=== PATIENT | female | born 1975 | race African-American/Black ===

== ENCOUNTER 2016-08-03 09:34 | Emergency (ER) | payer OTHER ==
[~2016-08-03] VITALS: Ht 165.1 cm; Wt 60.8 kg
[~2016-08-03 09:34] MED LIST: ACETAMINOPHEN325 M1; ADVAIR 100-501 EACH INH; ADVIL200 MG PO; ALA-CORT28.4 GM TP; ALBUTEROL SUL5 MG/ML IH; ALEVE220 M1 PO; ALEVE220 MG PO; ALLEGRA180 MG PO; AMOXICILLIN 50500 M1 PO; APAP500; APAP500 PO; BACTRIM DS TAB1 EACH PO; BENTYL20 MG PO; BUSPIRONE HCL10 MG PO; CEFTIN 250 MG250 MG PO; CEPHALEXIN 250250 M1 PO; CHILDREN'S ADVI50 MG PO; CIPRO500 MG PO; CIPROFLOXACIN500 M1 PO; CIPROFLOXACIN500 M3 OR; CITRATE OF MAG296 ML PO; CLARITIN; CLARITIN10 MG; CLARITIN10 MG PO; CLONAZEPAM 1 MG1 M1 PO; DEXILANT60 MG PO; DOXEPIN 10 MG C10 MG PO; DOXYCYCLINE 10100 MG PO; FAMOTIDINE 40 M40 M1 PO; FLONASE; FLONASE 0.05%50 MCG NASAL; GABITRIL2 MG PO; HYDROXYZINE HCL50 MG PO; IBUPROFEN 600600 M1 PO; IBUPROFEN 800800 M1 PO; IBUPROFEN 800800 MG PO; KAPIDEX30 MG PO; LORATADINE-D 21 EAC1 PO; LORTAB 5 MG/5001 TA1 PO; MACROBID 100 M100 M1 PO; MOBIC15 MG PO; MOBIC7.5 MG PO; NAPROSYN500 MG PO; NASACORT AQ16.5 GM NASAL; NASONEX17 GM NS; NEXIUM40 MG PO; NORCO 5-325 TA1 EACH PO; NORTRIPTYL10 MG/5 ML PO; PAIN RELIEVER500 M3 PO; PEPCID AC20 M1 PO; PEPCID20 MG PO; PEPCID40 MG PO; PHENAZOPYRIDIN200 M2 PO; PREDNISONE 20 M20 M1 PO; PREDNISONE 20 M20 MG PO; PREDNISONE 5 MG5 M1 PO; PROAIR HFA8.5 GM IH; PROAIR HFA8.5 GM INH; PROTONIX40 MG PO; RANITIDINE 150150 M1 PO; RANITIDINE HCL300 MG PO; ROBAXIN 750 MG750 M1 PO; SEROQUEL 100 M100 MG PO; SEROQUEL 50 MG50 M1 NG; TAVIST PO; TORADOL 10 MG T10 MG PO; TRAMADOL 50 MG50 MG PO; TRIAMCINOLONE A80 G2 TOP; TYLENOL325 MG PO; ULTRAM 50MG TAB50 MG PO; VISTARIL 25 MG25 M1 OR; VISTARIL 25 MG25 M1 PO; VISTARIL PO; VOLTAREN GEL 1100 G2 TOP; WELLBUTRIN XL150 M2 PO; ZANAFLEX4 MG PO; ZANTAC 150MG T150 M1 PO; ZOFRAN ODT4 MG PO; ZPAK PO
[2016-08-03] MEDS ORDERED: CLARITIN10 MG PO (09:42)
[2016-08-26] MEDS ORDERED: FLOVENT HFA 4444 MCG INH (20:00)
[2016-08-26] MEDS ORDERED: KEFLEX500 MG PO (20:00)
[2016-09-16] MEDS ORDERED: DOXYCYCLINE 10100 MG PO (09:06)
== END 2016-08-03 10:37 | disposition home or self-care (01) ==
LOC: ER 09:34
DX: S61.011A Laceration without foreign body of right thumb without damage to nail, initial encounter (principal); J45.909 Unspecified asthma, uncomplicated; F41.9 Anxiety disorder, unspecified; Z91.013 Allergy to seafood; Z88.8 Allergy status to other drugs, medicaments and biological substances; Z88.0 Allergy status to penicillin; Z88.3 Allergy status to other anti-infective agents; W26.0XXA Contact with knife, initial encounter; Y93.G1 Activity, food preparation and clean up; Y92.89 Other specified places as the place of occurrence of the external cause; Y99.8 Other external cause status

== ENCOUNTER 2016-12-24 08:29 | Emergency (ER) | payer OTHER ==
[~2016-12-24] VITALS: Ht 165.1 cm; Wt 59.9 kg
[~2016-12-24 08:29] MED LIST changes: +FLOVENT HFA 4444 MCG INH; +KEFLEX500 MG PO; +XANAX 0.25 MG0.25 MG PO
[2016-12-24 09:03] LABS: URINE BILIRUBIN NEGATIVE (Negative); URINE BLOOD 3+ (Negative); URINE COLOR YELLOW; URINE GLUCOSE-RANDOM* NEGATIVE (Negative); URINE KETONES NEGATIVE (Negative); URINE LEUKOCYTES-REFLEX NEGATIVE (Negative); URINE PROTEIN (DIPSTICK) TRACE (Negative); URINE SPECIFIC GRAVITY >= 1.030 (1.003-1.035); URINE UROBILINOGEN 0.2 E.U./dl (0.2-1.0)
[2016-12-24 09:33] LABS: CASTS None Seen /LPF (None Seen); SQUAMOUS >10 Many /LPF (0-3)
[2016-12-24 09:34] LABS: CRYSTALS None Seen /LPF (None Seen); URINE WBC-REFLEX 0-5 Rare /HPF (0-5)
== END 2016-12-24 10:25 | disposition home or self-care (01) ==
LOC: ER 08:29
PROVIDERS: Emergency Medicine
DX: R35.8 Other polyuria (principal); R41.9 Unspecified symptoms and signs involving cognitive functions and awareness; J45.909 Unspecified asthma, uncomplicated; G89.29 Other chronic pain; Z91.013 Allergy to seafood; Z88.0 Allergy status to penicillin; Z88.8 Allergy status to other drugs, medicaments and biological substances

== ENCOUNTER 2017-01-19 17:56 | Emergency (ER) | payer OTHER ==
[~2017-01-19] VITALS: Ht 165.1 cm; Wt 59.0 kg
[~2017-01-19 17:56] MED LIST changes: +ALEVE220 MG
[2017-01-19] MEDS ORDERED: MACROBID 100 M100 M1 PO (18:21)
[2017-01-19 18:29] LABS: URINE BILIRUBIN NEGATIVE (Negative); URINE BLOOD TRACE (Negative); URINE COLOR YELLOW; URINE GLUCOSE-RANDOM* NEGATIVE (Negative); URINE KETONES NEGATIVE (Negative); URINE NITRITE NEGATIVE (Negative); URINE PROTEIN (DIPSTICK) NEGATIVE (Negative); URINE SPECIFIC GRAVITY >= 1.030 (1.003-1.035); URINE UROBILINOGEN 0.2 E.U./dl (0.2-1.0)
== END 2017-01-19 19:25 | disposition home or self-care (01) ==
LOC: ER 17:56
PROVIDERS: Physician Assistant
DX: N39.0 Urinary tract infection, site not specified (principal); T37.8X5A Adverse effect of other specified systemic anti-infectives and antiparasitics, initial encounter; G89.29 Other chronic pain; J45.909 Unspecified asthma, uncomplicated; F41.9 Anxiety disorder, unspecified; Z91.013 Allergy to seafood; Z88.0 Allergy status to penicillin; Z88.8 Allergy status to other drugs, medicaments and biological substances; Y92.89 Other specified places as the place of occurrence of the external cause

== ENCOUNTER 2017-03-05 08:58 | Emergency (ER) | payer OTHER ==
[~2017-03-05] VITALS: Ht 165.1 cm; Wt 59.0 kg
--- NOTE | ~2017-03-05 | EKG ---
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
[2017-03-05 09:39] LABS: URINE BILIRUBIN 2+ (Negative); URINE BLOOD 3+ (Negative); URINE COLOR BROWN; URINE GLUCOSE-RANDOM* NEGATIVE (Negative); URINE KETONES NEGATIVE (Negative); URINE LEUKOCYTES-REFLEX NEGATIVE (Negative); URINE PROTEIN (DIPSTICK) 2+ (Negative); URINE SPECIFIC GRAVITY >= 1.030 (1.003-1.035)
[2017-03-05 09:50] LABS: ABSOLUTE NEUTROPHILS 4.9 thou/uL (1.4-8.2); BASOPHILS 0.3 % (0.0-2.0); EOSINOPHILS 1.4 % (0.0-3.0); HEMATOCRIT 37.3 % (37.0-47.0); HEMOGLOBIN 12.5 gm/dL (12.0-15.0); LYMPHOCYTES 10.2 % (24.0-44.0); MCHC 33.5 g/dL (28.0-37.0); MCV 89.7 fL (80.0-100.0); MONOCYTES 8.4 % (1.0-8.0); PLATELET COUNT 262 thou/uL (150-400); POLYS 79.7 % (36.0-66.0); RBC 4.15 mil/uL (4.20-5.00); RDW 14.2 % (10.5-14.5); WBC 6.1 thou/uL (4.0-11.0)
[2017-03-05 09:51] LABS: MANUAL DIFF NO
[2017-03-05 09:58] LABS: ICTOTEST (BILI CONFIRMATORY) Negative (Negative)
[2017-03-05 10:06] LABS: ANION GAP 8 mmol/L (7-16); BUN 24 mg/dL (7-18); CALCIUM 8.8 mg/dL (8.5-10.1); CHLORIDE 103 mmol/L (98-107); CO2 27 mmol/L (21-32); CREATININE 0.9 mg/dL (0.6-1.0); GLUCOSE 86 mg/dL (74-106); POTASSIUM 4.1 mmol/L (3.5-5.1); SODIUM 138 mmol/L (136-145)
[2017-03-05 10:11] LABS: CASTS None Seen /LPF (None Seen); CRYSTALS None Seen /LPF (None Seen); SQUAMOUS 4-10 Moderate /LPF (0-3); URINE RBC >20 Many /HPF (0-2); URINE WBC-REFLEX 6-15 Few /HPF (0-5)
[2017-03-05 10:14] LABS: ALBUMIN 3.7 g/dL (3.4-5.0); ALKALINE PHOSPHATASE 56 U/L (46-116); SGOT 15 U/L (15-37); SGPT 14 U/L (30-65); TOTAL BILIRUBIN 0.3 mg/dL (<0.1-1.0); TOTAL PROTEIN 8.1 g/dL (6.4-8.2); TROPONIN-I < 0.04 ng/mL (<0.04-0.07)
[2017-03-05] MEDS ORDERED: MACROBID 100 M100 M1 PO (10:48)
== END 2017-03-05 11:20 | disposition home or self-care (01) ==
LOC: ER 08:58
PROVIDERS: Physician Assistant
DX: R42 Dizziness and giddiness (principal); H61.23 Impacted cerumen, bilateral; J45.909 Unspecified asthma, uncomplicated; F41.9 Anxiety disorder, unspecified; Z98.890 Other specified postprocedural states; Z91.013 Allergy to seafood; Z88.0 Allergy status to penicillin; Z88.8 Allergy status to other drugs, medicaments and biological substances

== ENCOUNTER 2017-03-17 07:51 | Emergency (ER) | payer OTHER ==
[~2017-03-17] VITALS: Ht 165.1 cm; Wt 59.0 kg
[2017-03-17] MEDS ORDERED: TRANSDERM-SCO1 PATC1 TD (08:31)
== END 2017-03-17 08:46 | disposition home or self-care (01) ==
LOC: ER 07:51
DX: L08.9 Local infection of the skin and subcutaneous tissue, unspecified (principal); R42 Dizziness and giddiness; G89.29 Other chronic pain; J45.909 Unspecified asthma, uncomplicated; F41.9 Anxiety disorder, unspecified; N30.10 Interstitial cystitis (chronic) without hematuria; Z91.013 Allergy to seafood; Z88.8 Allergy status to other drugs, medicaments and biological substances; Z88.0 Allergy status to penicillin

== ENCOUNTER 2017-05-21 07:23 | Emergency (ER) | payer OTHER ==
[~2017-05-21] VITALS: Ht 154.9 cm; Wt 59.0 kg
[~2017-05-21 07:23] MED LIST changes: +TRANSDERM-SCO1 PATC1 TD
[2017-05-21 07:49] LABS: URINE BILIRUBIN NEGATIVE (Negative); URINE BLOOD 3+ (Negative); URINE COLOR RED; URINE GLUCOSE-RANDOM* NEGATIVE (Negative); URINE KETONES NEGATIVE (Negative); URINE NITRITE NEGATIVE (Negative); URINE PROTEIN (DIPSTICK) 2+ (Negative); URINE SPECIFIC GRAVITY >= 1.030 (1.003-1.035); URINE UROBILINOGEN 0.2 E.U./dl (0.2-1.0)
[2017-05-21 07:51] LABS: BACTERIA 1-9 Few /HPF (None Seen); CASTS None Seen /LPF (None Seen); CRYSTALS None Seen /LPF (None Seen); SQUAMOUS 0-3 Few /LPF (0-3); URINE RBC >20 Many /HPF (0-2); URINE WBC 0-5 Rare /HPF (0-5)
== END 2017-05-21 08:29 | disposition home or self-care (01) ==
LOC: ER 07:23
PROVIDERS: Emergency Medicine
DX: N92.0 Excessive and frequent menstruation with regular cycle (principal); K59.00 Constipation, unspecified; G89.29 Other chronic pain; J45.909 Unspecified asthma, uncomplicated; F41.9 Anxiety disorder, unspecified; N30.10 Interstitial cystitis (chronic) without hematuria; Z91.013 Allergy to seafood; Z88.8 Allergy status to other drugs, medicaments and biological substances; Z88.0 Allergy status to penicillin

== ENCOUNTER 2017-07-10 16:14 | Emergency (ER) | payer OTHER ==
[~2017-07-10] VITALS: Ht 165.1 cm; Wt 60.8 kg
[~2017-07-10 16:14] MED LIST changes: +CELEXA10 MG PO; +CLARINEX5 MG PO; +DESLORATADINE5 MG PO; +MACROBID 100 M100 M2 PO; +PROBIOTIC1 EAC1 PO; +SENNA S TABLET1 EACH PO
[2017-07-10 16:55] LABS: URINE BILIRUBIN NEGATIVE (Negative); URINE BLOOD NEGATIVE (Negative); URINE COLOR YELLOW; URINE GLUCOSE-RANDOM* NEGATIVE (Negative); URINE KETONES NEGATIVE (Negative); URINE NITRITE NEGATIVE (Negative); URINE PROTEIN (DIPSTICK) NEGATIVE (Negative); URINE UROBILINOGEN 0.2 E.U./dl (0.2-1.0)
[2017-07-11] MEDS ORDERED: PYRIDIUM200 MG PO (08:37)
[2017-07-12] MEDS ORDERED: CELEXA10 MG PO (19:40)
[2017-07-12] MEDS ORDERED: ALBUTEROL2.5 MG/0.1 INH (19:41)
== END 2017-07-10 19:11 | disposition home or self-care (01) ==
LOC: ER 16:14
PROVIDERS: Physician Assistant
DX: N39.0 Urinary tract infection, site not specified (principal); G89.29 Other chronic pain; J45.909 Unspecified asthma, uncomplicated; F41.9 Anxiety disorder, unspecified; Z91.013 Allergy to seafood; Z88.8 Allergy status to other drugs, medicaments and biological substances; Z88.0 Allergy status to penicillin; Z88.1 Allergy status to other antibiotic agents

== ENCOUNTER 2017-07-19 22:34 | Emergency (ER) | payer OTHER ==
[~2017-07-19] VITALS: Ht 165.1 cm; Wt 60.8 kg
[~2017-07-19 22:34] MED LIST changes: +ALBUTEROL2.5 MG/0.1 INH; +PYRIDIUM200 MG PO
[2017-07-19] MEDS ORDERED: VENTOLIN HFA 1818 GM INH (22:42)
[2017-07-19 22:57] LABS: URINE BILIRUBIN NEGATIVE (Negative); URINE BLOOD TRACE (Negative); URINE CLARITY CLEAR; URINE COLOR YELLOW; URINE GLUCOSE-RANDOM* NEGATIVE (Negative); URINE KETONES NEGATIVE (Negative); URINE LEUKOCYTES NEGATIVE (Negative); URINE NITRITE NEGATIVE (Negative); URINE PROTEIN (DIPSTICK) NEGATIVE (Negative); URINE SPECIFIC GRAVITY >= 1.030 (1.005-1.035); URINE UROBILINOGEN 0.2 E.U./dl (0.2-1.0)
[2017-07-20] MEDS ORDERED: ZANTAC 150MG T150 MG PO (00:48)
[2017-07-20 01:03] VITALS: BP 109/37
[2017-07-20] MEDS ORDERED: ACETAMINOPHEN-1 EAC1 PO (01:10)
== END 2017-07-20 01:07 | disposition home or self-care (01) ==
LOC: ER 22:34
PROVIDERS: Nurse Practitioner Family
DX: R10.9 Unspecified abdominal pain (principal); F41.9 Anxiety disorder, unspecified; L29.9 Pruritus, unspecified; M79.7 Fibromyalgia; N30.10 Interstitial cystitis (chronic) without hematuria; J45.909 Unspecified asthma, uncomplicated; Z91.013 Allergy to seafood; Z88.8 Allergy status to other drugs, medicaments and biological substances; Z88.0 Allergy status to penicillin

== ENCOUNTER 2017-08-04 09:36 | Emergency (ER) | payer OTHER ==
[~2017-08-04] VITALS: Ht 165.1 cm; Wt 65.8 kg
[~2017-08-04 09:36] MED LIST changes: +ACETAMINOPHEN-1 EAC1 PO; +VENTOLIN HFA 1818 GM INH; +ZANTAC 150MG T150 MG PO
[2017-08-04 10:29] LABS: URINE BILIRUBIN NEGATIVE (Negative); URINE BLOOD TRACE (Negative); URINE CLARITY CLEAR; URINE COLOR YELLOW; URINE GLUCOSE-RANDOM* NEGATIVE (Negative); URINE KETONES NEGATIVE (Negative); URINE LEUKOCYTES NEGATIVE (Negative); URINE NITRITE NEGATIVE (Negative); URINE PROTEIN (DIPSTICK) NEGATIVE (Negative); URINE SPECIFIC GRAVITY >= 1.030 (1.005-1.035); URINE UROBILINOGEN 0.2 E.U./dl (0.2-1.0)
[2017-08-04 12:13] VITALS: BP 99/60
== END 2017-08-04 12:52 ==
LOC: ER 09:36
PROVIDERS: Nurse Practitioner
DX: J06.9 Acute upper respiratory infection, unspecified (principal); R10.2 Pelvic and perineal pain; G89.29 Other chronic pain; J45.909 Unspecified asthma, uncomplicated; N30.10 Interstitial cystitis (chronic) without hematuria; F41.9 Anxiety disorder, unspecified; M79.7 Fibromyalgia; Z91.013 Allergy to seafood; Z88.8 Allergy status to other drugs, medicaments and biological substances; Z88.0 Allergy status to penicillin

== ENCOUNTER 2017-08-14 20:17 | Emergency (ER) | payer OTHER ==
[~2017-08-14] VITALS: Ht 170.2 cm; Wt 69.4 kg
[2017-08-14 20:46] LABS: URINE BILIRUBIN NEGATIVE (Negative); URINE BLOOD NEGATIVE (Negative); URINE CLARITY CLEAR; URINE COLOR YELLOW; URINE GLUCOSE-RANDOM* NEGATIVE (Negative); URINE KETONES NEGATIVE (Negative); URINE LEUKOCYTES-REFLEX NEGATIVE (Negative); URINE NITRITE-REFLEX NEGATIVE (Negative); URINE PROTEIN (DIPSTICK) NEGATIVE (Negative); URINE SPECIFIC GRAVITY 1.015 (1.005-1.035); URINE UROBILINOGEN 0.2 E.U./dl (0.2-1.0)
[2017-08-14] MEDS ORDERED: URISPAS100 MG PO (22:11)
[2017-08-14] MEDS ORDERED: NAPROSYN500 MG PO (22:11)
[2017-08-14 22:30] VITALS: BP 104/55
== END 2017-08-14 22:30 | disposition home or self-care (01) ==
LOC: ER 20:17
PROVIDERS: Emergency Medicine
DX: R30.0 Dysuria (principal); M79.7 Fibromyalgia; J45.909 Unspecified asthma, uncomplicated; F41.9 Anxiety disorder, unspecified; Z88.8 Allergy status to other drugs, medicaments and biological substances; Z88.0 Allergy status to penicillin; Z91.013 Allergy to seafood

== ENCOUNTER 2017-08-22 20:15 | Emergency (ER) | payer OTHER ==
[~2017-08-22] VITALS: Ht 165.1 cm; Wt 61.7 kg
[~2017-08-22 20:15] MED LIST changes: +URISPAS100 MG PO
[2017-08-22 20:37] VITALS: BP 108/56
== END 2017-08-22 21:20 | disposition home or self-care (01) ==
LOC: ER 20:15
DX: M79.7 Fibromyalgia (principal); J45.909 Unspecified asthma, uncomplicated; Z88.0 Allergy status to penicillin; Z91.013 Allergy to seafood; Z88.8 Allergy status to other drugs, medicaments and biological substances

== ENCOUNTER 2017-08-31 14:44 | Emergency (ER) | payer OTHER ==
[~2017-08-31] VITALS: Ht 172.7 cm; Wt 68.0 kg
[2017-08-31 14:59] VITALS: BP 107/62
[2017-08-31] MEDS ORDERED: CORTISONE28 GM TOP (15:18)
[2017-08-31] MEDS ORDERED: PREDNISONE 20 M20 M1 PO (15:18)
[2017-08-31] MEDS ORDERED: CLARITIN10 MG PO (15:24)
== END 2017-08-31 16:16 | disposition home or self-care (01) ==
LOC: ER 14:44
DX: L50.9 Urticaria, unspecified (principal); J45.909 Unspecified asthma, uncomplicated; M79.7 Fibromyalgia; F41.9 Anxiety disorder, unspecified; Z88.0 Allergy status to penicillin; Z91.013 Allergy to seafood; Z88.8 Allergy status to other drugs, medicaments and biological substances

== ENCOUNTER 2017-09-29 11:43 | Emergency (ER) | payer OTHER ==
[~2017-09-29] VITALS: Ht 165.1 cm; Wt 60.8 kg
--- NOTE | ~2017-09-29 | EKG ---
[place] [address] [facility] [place] [address] ELECTROCARDIOGRAM REPORT Name: KINZA SINGH [id number] Admission: 09/29/17 Attend Phys: Discharge: 09/29/17 Date of : 77 Report #: [id number] THIS REPORT FOR: //name// 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 09/30/17 1317 1244 1244 Luis Jacobs MD, [facility] /EPI
[~2017-09-29 11:43] MED LIST changes: +CORTISONE28 GM TOP
[2017-09-29 12:42] LABS: URINE BILIRUBIN NEGATIVE (Negative); URINE BLOOD TRACE (Negative); URINE CLARITY CLEAR; URINE COLOR YELLOW; URINE GLUCOSE-RANDOM* NEGATIVE (Negative); URINE KETONES NEGATIVE (Negative); URINE LEUKOCYTES NEGATIVE (Negative); URINE NITRITE NEGATIVE (Negative); URINE PROTEIN (DIPSTICK) TRACE (Negative); URINE SPECIFIC GRAVITY 1.025 (1.005-1.035); URINE UROBILINOGEN 0.2 E.U./dl (0.2-1.0)
[2017-09-29 13:23] LABS: HEMATOCRIT 34.1 % (37.0-47.0); HEMOGLOBIN 11.3 gm/dL (12.0-15.0); MCH 29.8 pg (26.0-34.0); MCHC 33.1 g/dL (28.0-37.0); MCV 90.1 fL (80.0-100.0); RBC 3.79 mil/uL (4.20-5.00); RDW 14.8 % (10.5-14.5); WBC 4.9 thou/uL (4.0-11.0)
[2017-09-29 13:36] LABS: ANION GAP 5 mmol/L (7-16); BUN 30 mg/dL (7-18); CALCIUM 8.5 mg/dL (8.5-10.1); CHLORIDE 106 mmol/L (98-107); CO2 27 mmol/L (21-32); CREATININE 0.8 mg/dL (0.6-1.0); GLUCOSE 96 mg/dL (74-106); POTASSIUM 4.1 mmol/L (3.5-5.1); SODIUM 138 mmol/L (136-145)
[2017-09-29 13:45] LABS: TROPONIN-I < 0.04 ng/mL (<0.06)
[2017-09-29 14:29] VITALS: BP 98/59
== END 2017-09-29 14:31 | disposition home or self-care (01) ==
LOC: ER 11:43
PROVIDERS: Physician Assistant
DX: F41.9 Anxiety disorder, unspecified (principal); R42 Dizziness and giddiness; G89.4 Chronic pain syndrome; J45.909 Unspecified asthma, uncomplicated; M79.7 Fibromyalgia; Z88.8 Allergy status to other drugs, medicaments and biological substances; Z88.1 Allergy status to other antibiotic agents; Z88.0 Allergy status to penicillin; Z91.013 Allergy to seafood

== ENCOUNTER 2017-10-03 06:21 | Emergency (ER) | payer OTHER ==
[~2017-10-03] VITALS: Ht 167.6 cm; Wt 60.8 kg
--- NOTE | ~2017-10-03 | EKG ---
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 : 1975 Requested By: Raulito Del Angel Order Number: [id number] MD: Luis Jacobs Measurements Intervals [place] Rate: 63 P: 55 SD: 169 QRS: 63 QRSD: 81 T: 33 QT: 382 QTc: 392 Interpretive Statements Sinus rhythm RSR' in V1 or V2, right VCD Compared to ECG 09/29/2017 12:44:06 No significant change was found Electronically Signed On 10-05-2017 13:35:03 CDT by Luis Jacobs [email or web address] <ELECTRONICALLY SIGNED> By: Luis Jacobs MD, [facility] 10/05/17 1335 0656 0656 Luis Jacobs MD, [facility] /EPI
[2017-10-03] MEDS ORDERED: VISTARIL 25 MG25 M1 PO (07:29)
[2017-10-03 07:59] VITALS: BP 102/64
== END 2017-10-03 08:00 | disposition home or self-care (01) ==
LOC: ER 06:21
DX: R07.89 Other chest pain (principal); F41.9 Anxiety disorder, unspecified; R42 Dizziness and giddiness; J45.909 Unspecified asthma, uncomplicated; M79.7 Fibromyalgia; Z88.0 Allergy status to penicillin; Z88.6 Allergy status to analgesic agent; Z88.8 Allergy status to other drugs, medicaments and biological substances

== ENCOUNTER 2017-11-06 16:59 | Emergency (ER) | payer OTHER ==
[~2017-11-06] VITALS: Ht 165.1 cm; Wt 60.8 kg
[2017-11-06] MEDS ORDERED: CLARITIN10 MG PO (17:18)
[2017-11-06 18:22] LABS: URINE BILIRUBIN NEGATIVE (Negative); URINE BLOOD NEGATIVE (Negative); URINE CLARITY CLEAR; URINE COLOR YELLOW; URINE GLUCOSE-RANDOM* NEGATIVE (Negative); URINE KETONES NEGATIVE (Negative); URINE LEUKOCYTES NEGATIVE (Negative); URINE NITRITE NEGATIVE (Negative); URINE PROTEIN (DIPSTICK) NEGATIVE (Negative); URINE SPECIFIC GRAVITY >= 1.030 (1.005-1.035); URINE UROBILINOGEN 0.2 E.U./dl (0.2-1.0)
[2017-11-06 19:14] LABS: ABSOLUTE NEUTROPHILS 3.9 thou/uL (1.4-8.2); BASOPHILS 0.4 % (0.0-2.0); EOSINOPHILS 4.3 % (0.0-3.0); HEMATOCRIT 38.1 % (37.0-47.0); HEMOGLOBIN 12.9 gm/dL (12.0-15.0); LYMPHOCYTES 20.1 % (24.0-44.0); MCH 30.4 pg (26.0-34.0); MCHC 33.9 g/dL (28.0-37.0); MCV 89.9 fL (80.0-100.0); MONOCYTES 7.6 % (1.0-8.0); PLATELET COUNT 271 thou/uL (150-400); POLYS 67.6 % (36.0-66.0); RBC 4.24 mil/uL (4.20-5.00); RDW 14.2 % (10.5-14.5); WBC 5.7 thou/uL (4.0-11.0)
[2017-11-06 19:24] LABS: CALCIUM 9.3 mg/dL (8.5-10.1); CREATININE 0.7 mg/dL (0.6-1.0)
[2017-11-06 19:28] LABS: ALBUMIN 3.8 g/dL (3.4-5.0); TOTAL BILIRUBIN 0.2 mg/dL (<0.1-1.0); TOTAL PROTEIN 8.1 g/dL (6.4-8.2)
[2017-11-07 14:13] LABS: NEISSERIA GONORRHEA-PCR Negative (Negative)
== END 2017-11-06 20:40 | disposition home or self-care (01) ==
LOC: ER 16:59
PROVIDERS: Physician Assistant
DX: N30.10 Interstitial cystitis (chronic) without hematuria (principal); G89.29 Other chronic pain; J45.909 Unspecified asthma, uncomplicated; F41.9 Anxiety disorder, unspecified; M79.7 Fibromyalgia; Z91.013 Allergy to seafood; Z88.8 Allergy status to other drugs, medicaments and biological substances; Z88.0 Allergy status to penicillin

== ENCOUNTER 2017-12-27 02:04 | Emergency (ER) | payer OTHER ==
[~2017-12-27] VITALS: Ht 165.1 cm; Wt 63.5 kg
[2017-12-27 02:26] LABS: URINE BILIRUBIN NEGATIVE (Negative); URINE BLOOD NEGATIVE (Negative); URINE CLARITY CLEAR; URINE COLOR YELLOW; URINE GLUCOSE-RANDOM* NEGATIVE (Negative); URINE KETONES NEGATIVE (Negative); URINE LEUKOCYTES-REFLEX NEGATIVE (Negative); URINE NITRITE-REFLEX NEGATIVE (Negative); URINE PROTEIN (DIPSTICK) NEGATIVE (Negative); URINE SPECIFIC GRAVITY >= 1.030 (1.005-1.035); URINE UROBILINOGEN 0.2 E.U./dl (0.2-1.0)
[2017-12-27] MEDS ORDERED: TYLENOL EXTRA500 MG PO (02:50)
[2017-12-27 04:20] LABS: ABSOLUTE NEUTROPHILS 3.7 thou/uL (1.4-8.2); EOSINOPHILS 3.7 % (0.0-3.0); HEMATOCRIT 35.7 % (37.0-47.0); HEMOGLOBIN 12.2 gm/dL (12.0-15.0); LYMPHOCYTES 18.6 % (24.0-44.0); MCH 30.8 pg (26.0-34.0); MCHC 34.1 g/dL (28.0-37.0); MCV 90.2 fL (80.0-100.0); MONOCYTES 7.9 % (1.0-8.0); PLATELET COUNT 255 thou/uL (150-400); POLYS 68.8 % (36.0-66.0); RBC 3.96 mil/uL (4.20-5.00); RDW 13.7 % (10.5-14.5); WBC 5.4 thou/uL (4.0-11.0)
[2017-12-27 04:27] LABS: CALCIUM 9.1 mg/dL (8.5-10.1); CREATININE 0.7 mg/dL (0.6-1.0); POTASSIUM 3.7 mmol/L (3.5-5.1)
== END 2017-12-27 06:34 | disposition home or self-care (01) ==
LOC: ER 02:04
PROVIDERS: Emergency Medicine
DX: R10.9 Unspecified abdominal pain (principal); N39.0 Urinary tract infection, site not specified; M79.7 Fibromyalgia; F41.9 Anxiety disorder, unspecified; J45.909 Unspecified asthma, uncomplicated; Z88.0 Allergy status to penicillin; Z91.013 Allergy to seafood; Z88.8 Allergy status to other drugs, medicaments and biological substances

== ENCOUNTER 2018-01-12 00:21 | Emergency (ER) | payer OTHER ==
[~2018-01-12] VITALS: Ht 165.1 cm; Wt 59.4 kg
[~2018-01-12 00:21] MED LIST changes: +TYLENOL EXTRA500 MG PO
[2018-01-12 00:46] LABS: URINE BILIRUBIN NEGATIVE (Negative); URINE BLOOD NEGATIVE (Negative); URINE CLARITY CLEAR; URINE COLOR YELLOW; URINE GLUCOSE-RANDOM* NEGATIVE (Negative); URINE KETONES NEGATIVE (Negative); URINE LEUKOCYTES-REFLEX NEGATIVE (Negative); URINE NITRITE-REFLEX NEGATIVE (Negative); URINE PROTEIN (DIPSTICK) NEGATIVE (Negative); URINE SPECIFIC GRAVITY <= 1.005 (1.005-1.035); URINE UROBILINOGEN 0.2 E.U./dl (0.2-1.0)
== END 2018-01-12 01:14 | disposition home or self-care (01) ==
LOC: ER 00:21
PROVIDERS: Emergency Medicine
DX: Z71.1 Person with feared health complaint in whom no diagnosis is made (principal); R11.2 Nausea with vomiting, unspecified

== ENCOUNTER 2018-01-25 22:53 | Emergency (ER) | payer OTHER ==
[~2018-01-25] VITALS: Ht 165.1 cm; Wt 59.0 kg
[2018-01-25] MEDS ORDERED: IBUPROFEN 200200 M1 PO (23:35)
[2018-01-26 01:01] LABS: URINE BILIRUBIN NEGATIVE (Negative); URINE BLOOD NEGATIVE (Negative); URINE CLARITY SL CLOUDY; URINE COLOR YELLOW; URINE GLUCOSE-RANDOM* NEGATIVE (Negative); URINE KETONES NEGATIVE (Negative); URINE LEUKOCYTES-REFLEX NEGATIVE (Negative); URINE NITRITE-REFLEX NEGATIVE (Negative); URINE PROTEIN (DIPSTICK) NEGATIVE (Negative); URINE SPECIFIC GRAVITY >= 1.030 (1.005-1.035); URINE UROBILINOGEN 0.2 E.U./dl (0.2-1.0)
== END 2018-01-26 02:08 | disposition home or self-care (01) ==
LOC: ER 22:53
PROVIDERS: Emergency Medicine
DX: N30.10 Interstitial cystitis (chronic) without hematuria (principal); R42 Dizziness and giddiness; F41.9 Anxiety disorder, unspecified; G89.4 Chronic pain syndrome; M79.7 Fibromyalgia; R07.9 Chest pain, unspecified; R09.81 Nasal congestion; K59.00 Constipation, unspecified; R06.02 Shortness of breath; J45.909 Unspecified asthma, uncomplicated; Z91.013 Allergy to seafood; Z88.1 Allergy status to other antibiotic agents; Z88.8 Allergy status to other drugs, medicaments and biological substances; Z88.0 Allergy status to penicillin

== ENCOUNTER 2018-04-18 16:49 | Emergency (ER) | payer OTHER ==
[~2018-04-18] VITALS: Ht 165.1 cm; Wt 59.0 kg
[~2018-04-18 16:49] MED LIST changes: +IBUPROFEN 200200 M1 PO
[2018-04-18] MEDS ORDERED: CLARINEX5 MG PO (17:17)
[2018-04-18 18:26] LABS: URINE BILIRUBIN NEGATIVE (Negative); URINE BLOOD NEGATIVE (Negative); URINE CLARITY CLEAR; URINE COLOR YELLOW; URINE GLUCOSE-RANDOM* NEGATIVE (Negative); URINE KETONES NEGATIVE (Negative); URINE LEUKOCYTES-REFLEX NEGATIVE (Negative); URINE NITRITE-REFLEX NEGATIVE (Negative); URINE PROTEIN (DIPSTICK) NEGATIVE (Negative); URINE SPECIFIC GRAVITY 1.025 (1.005-1.035); URINE UROBILINOGEN 0.2 E.U./dl (0.2-1.0)
[2018-04-18 19:11] LABS: ABSOLUTE NEUTROPHILS 3.8 thou/uL (1.4-8.2); BASOPHILS 0.7 % (0.0-2.0); HEMATOCRIT 36.3 % (37.0-47.0); HEMOGLOBIN 12.2 gm/dL (12.0-15.0); LYMPHOCYTES 19.6 % (24.0-44.0); MCH 30.6 pg (26.0-34.0); MCHC 33.5 g/dL (28.0-37.0); MCV 91.2 fL (80.0-100.0); MONOCYTES 6.7 % (1.0-8.0); PLATELET COUNT 285 thou/uL (150-400); RBC 3.98 mil/uL (4.20-5.00); RDW 13.9 % (10.5-14.5); WBC 5.5 thou/uL (4.0-11.0)
[2018-04-18 19:26] LABS: CALCIUM 9.6 mg/dL (8.5-10.1); CREATININE 0.8 mg/dL (0.6-1.0); POTASSIUM 3.8 mmol/L (3.5-5.1)
[2018-04-18 19:31] LABS: ALBUMIN 3.7 g/dL (3.4-5.0); TOTAL BILIRUBIN 0.1 mg/dL (<0.1-1.0); TOTAL PROTEIN 8.2 g/dL (6.4-8.2)
== END 2018-04-18 20:20 | disposition home or self-care (01) ==
LOC: ER 16:49
PROVIDERS: Emergency Medicine
DX: R10.30 Lower abdominal pain, unspecified (principal); G89.4 Chronic pain syndrome; J45.909 Unspecified asthma, uncomplicated; F41.9 Anxiety disorder, unspecified; M79.7 Fibromyalgia; Z88.8 Allergy status to other drugs, medicaments and biological substances; Z88.4 Allergy status to anesthetic agent; Z88.0 Allergy status to penicillin; Z91.013 Allergy to seafood

== ENCOUNTER 2018-07-02 08:56 | Emergency (ER) | payer OTHER ==
[~2018-07-02] VITALS: Ht 162.6 cm; Wt 59.0 kg
[2018-07-02 09:14] LABS: URINE BILIRUBIN NEGATIVE (Negative); URINE BLOOD NEGATIVE (Negative); URINE CLARITY CLEAR; URINE COLOR YELLOW; URINE GLUCOSE-RANDOM* NEGATIVE (Negative); URINE KETONES NEGATIVE (Negative); URINE LEUKOCYTES-REFLEX NEGATIVE (Negative); URINE NITRITE-REFLEX NEGATIVE (Negative); URINE PROTEIN (DIPSTICK) NEGATIVE (Negative); URINE UROBILINOGEN 0.2 E.U./dl (0.2-1.0)
[2018-07-02 09:46] LABS: BASOPHILS 0.4 % (0.0-2.0); EOSINOPHILS 2.3 % (0.0-3.0); HEMATOCRIT 35.6 % (37.0-47.0); HEMOGLOBIN 11.9 gm/dL (12.0-15.0); LYMPHOCYTES 11.5 % (24.0-44.0); MCH 30.1 pg (26.0-34.0); MCHC 33.4 g/dL (28.0-37.0); MCV 90.1 fL (80.0-100.0); PLATELET COUNT 248 thou/uL (150-400); POLYS 76.8 % (36.0-66.0); RBC 3.95 mil/uL (4.20-5.00); RDW 13.8 % (10.5-14.5); WBC 5.2 thou/uL (4.0-11.0)
[2018-07-02 09:54] LABS: CALCIUM 8.8 mg/dL (8.5-10.1); CREATININE 0.8 mg/dL (0.6-1.0)
[2018-07-02 09:59] LABS: ALBUMIN 3.6 g/dL (3.4-5.0); TOTAL BILIRUBIN 0.3 mg/dL (<0.1-1.0); TOTAL PROTEIN 7.5 g/dL (6.4-8.2)
[2018-07-02 11:00] VITALS: BP 110/54
== END 2018-07-02 11:07 | disposition home or self-care (01) ==
LOC: ER 08:56
PROVIDERS: Physician Assistant
DX: R35.0 Frequency of micturition (principal); F41.9 Anxiety disorder, unspecified; G89.4 Chronic pain syndrome; J45.909 Unspecified asthma, uncomplicated; M79.7 Fibromyalgia; Z91.013 Allergy to seafood; Z88.8 Allergy status to other drugs, medicaments and biological substances; Z88.4 Allergy status to anesthetic agent; Z88.0 Allergy status to penicillin

== ENCOUNTER 2018-10-13 22:36 | Emergency (ER) | payer OTHER ==
[~2018-10-13] VITALS: Ht 160 cm; Wt 63.5 kg
[2018-10-13 23:22] LABS: URINE BILIRUBIN NEGATIVE (Negative); URINE BLOOD NEGATIVE (Negative); URINE CLARITY CLEAR; URINE COLOR YELLOW; URINE GLUCOSE-RANDOM* NEGATIVE (Negative); URINE KETONES NEGATIVE (Negative); URINE LEUKOCYTES-REFLEX NEGATIVE (Negative); URINE NITRITE-REFLEX NEGATIVE (Negative); URINE PROTEIN (DIPSTICK) NEGATIVE (Negative); URINE SPECIFIC GRAVITY >= 1.030 (1.005-1.035); URINE UROBILINOGEN 0.2 E.U./dl (0.2-1.0)
[2018-10-14 01:25] VITALS: BP 106/55
--- NOTE | 2018-10-14 08:04 | EKG ---
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 : 1975 Requested By: Raulito Del Angel Order Number: [id number] MD: Luis Jacobs Measurements Intervals [place] Rate: 63 P: 64 [place]: 164 QRS: 65 QRSD: 81 T: 43 QT: 372 QTc: 381 Interpretive Statements Sinus rhythm RSR' in V1 or V2, probably normal variant Compared to ECG 10/03/2017 06:56:15 No significant changes Electronically Signed On 10-14-2018 8:04:14 CDT by Luis Jacobs [email or web address] ��������������������������������������������� <ELECTRONICALLY SIGNED> ���������������������������������������� By: Luis Jacobs MD, [facility] ��������������������������������������������� 10/14/18 0804 10 10 Luis Jacobs MD, [facility]ACC /EPI
== END 2018-10-14 01:26 | disposition home or self-care (01) ==
LOC: ER 22:36
PROVIDERS: Emergency Medicine
DX: N30.10 Interstitial cystitis (chronic) without hematuria (principal); B34.9 Viral infection, unspecified; G89.29 Other chronic pain; J45.909 Unspecified asthma, uncomplicated; M79.7 Fibromyalgia; Z88.0 Allergy status to penicillin; Z88.8 Allergy status to other drugs, medicaments and biological substances; Z91.013 Allergy to seafood

== ENCOUNTER 2018-11-30 18:19 | Emergency (ER) | payer OTHER ==
[~2018-11-30] VITALS: Ht 165.1 cm; Wt 63.5 kg
[2018-11-30 19:12] LABS: ABSOLUTE NEUTROPHILS 5.4 thou/uL (1.4-8.2); BASOPHILS 0.4 % (0.0-2.0); EOSINOPHILS 2.6 % (0.0-3.0); HEMATOCRIT 34.9 % (37.0-47.0); HEMOGLOBIN 11.8 gm/dL (12.0-15.0); LYMPHOCYTES 11.6 % (24.0-44.0); MCH 31.2 pg (26.0-34.0); MCHC 33.7 g/dL (28.0-37.0); MCV 92.6 fL (80.0-100.0); MONOCYTES 6.3 % (1.0-8.0); PLATELET COUNT 256 thou/uL (150-400); POLYS 79.1 % (36.0-66.0); RBC 3.77 mil/uL (4.20-5.00); RDW 14.1 % (10.5-14.5); WBC 6.8 thou/uL (4.0-11.0)
[2018-11-30 19:24] LABS: CREATININE 0.9 mg/dL (0.6-1.0)
[2018-11-30 21:17] VITALS: BP 105/54
== END 2018-11-30 21:18 | disposition home or self-care (01) ==
LOC: ER 18:19
PROVIDERS: Physician Assistant
DX: R42 Dizziness and giddiness (principal); R53.1 Weakness; J45.909 Unspecified asthma, uncomplicated; F41.9 Anxiety disorder, unspecified; M79.7 Fibromyalgia; N30.10 Interstitial cystitis (chronic) without hematuria; Z88.0 Allergy status to penicillin; Z88.6 Allergy status to analgesic agent; Z88.8 Allergy status to other drugs, medicaments and biological substances; Z91.013 Allergy to seafood

== ENCOUNTER 2019-07-08 00:54 | Emergency (ER) | payer OTHER ==
[~2019-07-08] VITALS: Ht 165.1 cm; Wt 65.8 kg
[2019-07-08 00:57] VITALS: BP 112/64
[2019-07-08 01:35] LABS: URINE BILIRUBIN NEGATIVE (Negative); URINE BLOOD 2+ (Negative); URINE CLARITY CLEAR; URINE COLOR YELLOW; URINE GLUCOSE-RANDOM* NEGATIVE (Negative); URINE KETONES NEGATIVE (Negative); URINE LEUKOCYTES-REFLEX NEGATIVE (Negative); URINE NITRITE-REFLEX NEGATIVE (Negative); URINE PROTEIN (DIPSTICK) NEGATIVE (Negative); URINE SPECIFIC GRAVITY 1.025 (1.005-1.035); URINE UROBILINOGEN 0.2 E.U./dl (0.2-1.0)
[2019-07-08 01:43] LABS: BACTERIA-REFLEX 1-9 Few /HPF (None Seen); CASTS None Seen /LPF (None Seen); MUCUS 0-3 Light strn/LPF (None Seen); SQUAMOUS 0-3 Few /LPF (0-3); URINE WBC-REFLEX 0-5 Rare /HPF (0-5)
[2019-07-08 01:44] LABS: CRYSTALS None Seen /LPF (None Seen)
[2019-07-08] MEDS ORDERED: KEFLEX500 M1 PO ×2 (02:21→02:55)
== END 2019-07-08 03:03 | disposition home or self-care (01) ==
LOC: ER 00:54
PROVIDERS: Emergency Medicine
DX: N39.0 Urinary tract infection, site not specified (principal); J45.909 Unspecified asthma, uncomplicated; M79.7 Fibromyalgia; F41.9 Anxiety disorder, unspecified; Z91.013 Allergy to seafood; Z88.0 Allergy status to penicillin; Z88.8 Allergy status to other drugs, medicaments and biological substances

== ENCOUNTER 2019-07-12 20:32 | Emergency (ER) | payer OTHER ==
[~2019-07-12] VITALS: Ht 165.1 cm; Wt 65.8 kg
[~2019-07-12 20:32] MED LIST changes: +KEFLEX500 M1 PO
[2019-07-12] MEDS ORDERED: MACROBID 100 M100 MG PO (20:38)
[2019-07-12 20:44] LABS: URINE BILIRUBIN NEGATIVE (Negative); URINE BLOOD NEGATIVE (Negative); URINE CLARITY CLEAR; URINE COLOR YELLOW; URINE GLUCOSE-RANDOM* NEGATIVE (Negative); URINE KETONES NEGATIVE (Negative); URINE LEUKOCYTES-REFLEX NEGATIVE (Negative); URINE NITRITE-REFLEX NEGATIVE (Negative); URINE PROTEIN (DIPSTICK) NEGATIVE (Negative); URINE UROBILINOGEN 0.2 E.U./dl (0.2-1.0)
[2019-07-12 21:20] VITALS: BP 107/38
== END 2019-07-12 21:24 | disposition home or self-care (01) ==
LOC: ER 20:32
PROVIDERS: Emergency Medicine
DX: N39.0 Urinary tract infection, site not specified (principal); R06.02 Shortness of breath; R10.2 Pelvic and perineal pain; J45.909 Unspecified asthma, uncomplicated; F41.9 Anxiety disorder, unspecified; M79.7 Fibromyalgia; G89.4 Chronic pain syndrome; Z88.8 Allergy status to other drugs, medicaments and biological substances; Z88.0 Allergy status to penicillin; Z91.013 Allergy to seafood

== ENCOUNTER 2019-08-21 12:20 | Emergency (ER) | payer OTHER ==
[~2019-08-21] VITALS: Ht 165.1 cm; Wt 63.5 kg
[~2019-08-21 12:20] MED LIST changes: +MACROBID 100 M100 MG PO
[2019-08-21 12:52] LABS: URINE BILIRUBIN NEGATIVE (Negative); URINE BLOOD NEGATIVE (Negative); URINE CLARITY CLEAR; URINE COLOR YELLOW; URINE GLUCOSE-RANDOM* NEGATIVE (Negative); URINE KETONES NEGATIVE (Negative); URINE LEUKOCYTES-REFLEX NEGATIVE (Negative); URINE NITRITE-REFLEX NEGATIVE (Negative); URINE PROTEIN (DIPSTICK) NEGATIVE (Negative); URINE UROBILINOGEN 0.2 E.U./dl (0.2-1.0)
[2019-08-21 15:04] VITALS: BP 102/54
== END 2019-08-21 15:07 | disposition home or self-care (01) ==
LOC: ER 12:20
PROVIDERS: Emergency Medicine
DX: H61.21 Impacted cerumen, right ear (principal); R09.81 Nasal congestion; R30.0 Dysuria; J45.909 Unspecified asthma, uncomplicated; M79.7 Fibromyalgia; F41.9 Anxiety disorder, unspecified; Z91.013 Allergy to seafood; Z88.0 Allergy status to penicillin; Z88.1 Allergy status to other antibiotic agents; Z88.8 Allergy status to other drugs, medicaments and biological substances

== ENCOUNTER 2019-09-10 19:07 | Emergency (ER) | payer OTHER ==
[~2019-09-10] VITALS: Ht 165.1 cm; Wt 64.4 kg
[2019-09-10] MEDS ORDERED: ALEVE220 M1 PO (19:14)
[2019-09-10] MEDS ORDERED: TOPAMAX 25 MG T25 M1 PO (19:32)
[2019-09-10] MEDS ORDERED: PROAIR HFA8.5 GM INH (19:32)
[2019-09-10] MEDS ORDERED: MICROGESTIN FE1 EACH PO (19:33)
[2019-09-10 19:43] LABS: URINE BILIRUBIN NEGATIVE (Negative); URINE BLOOD NEGATIVE (Negative); URINE CLARITY CLEAR; URINE COLOR YELLOW; URINE GLUCOSE-RANDOM* NEGATIVE (Negative); URINE KETONES NEGATIVE (Negative); URINE LEUKOCYTES-REFLEX NEGATIVE (Negative); URINE NITRITE-REFLEX NEGATIVE (Negative); URINE PROTEIN (DIPSTICK) NEGATIVE (Negative); URINE SPECIFIC GRAVITY 1.025 (1.005-1.035); URINE UROBILINOGEN 0.2 E.U./dl (0.2-1.0)
[2019-09-10 21:59] VITALS: BP 110/52
[2019-09-10] MEDS ORDERED: COLY-MYCIN S OT10 ML OTIC (21:59)
== END 2019-09-10 22:21 | disposition home or self-care (01) ==
LOC: ER 19:07
PROVIDERS: Emergency Medicine
DX: R10.9 Unspecified abdominal pain (principal); N30.10 Interstitial cystitis (chronic) without hematuria; H60.90 Unspecified otitis externa, unspecified ear; M79.7 Fibromyalgia; J45.909 Unspecified asthma, uncomplicated; R42 Dizziness and giddiness; F41.9 Anxiety disorder, unspecified; Z88.8 Allergy status to other drugs, medicaments and biological substances; Z88.1 Allergy status to other antibiotic agents; Z88.0 Allergy status to penicillin; Z91.013 Allergy to seafood

== ENCOUNTER 2019-09-30 11:00 | Emergency (ER) | payer OTHER ==
[~2019-09-30] VITALS: Ht 165.1 cm; Wt 65.8 kg
[~2019-09-30 11:00] MED LIST changes: +COLY-MYCIN S OT10 ML OTIC; +MICROGESTIN FE1 EACH PO; +TOPAMAX 25 MG T25 M1 PO
[2019-09-30] MEDS ORDERED: TYLENOL325 M1 PO (11:18)
[2019-09-30 11:29] LABS: URINE BILIRUBIN NEGATIVE (Negative); URINE BLOOD NEGATIVE (Negative); URINE CLARITY CLEAR; URINE COLOR YELLOW; URINE GLUCOSE-RANDOM* NEGATIVE (Negative); URINE KETONES NEGATIVE (Negative); URINE LEUKOCYTES-REFLEX NEGATIVE (Negative); URINE NITRITE-REFLEX NEGATIVE (Negative); URINE PROTEIN (DIPSTICK) NEGATIVE (Negative); URINE SPECIFIC GRAVITY <= 1.005 (1.005-1.035); URINE UROBILINOGEN 0.2 E.U./dl (0.2-1.0)
[2019-09-30] MEDS ORDERED: ACETAMINOPHEN PO (11:41)
--- NOTE | 2019-09-30 12:46 | EKG ---
[facility] [place] [address] ELECTROCARDIOGRAM REPORT Name: KINZA SINGH [facility] [id number] Admission: 09/30/19 Attend Phys: Discharge: Date of : [birth year] Report #: [id number] THIS REPORT FOR: cc: [facility] - Clinic physician unknown 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
[2019-09-30] MEDS ORDERED: NAPROXEN375 MG PO (13:37)
[2019-09-30 13:46] VITALS: BP 115/68
== END 2019-09-30 13:48 | disposition home or self-care (01) ==
LOC: ER 11:00
PROVIDERS: Nurse Practitioner Family
DX: R07.89 Other chest pain (principal); H61.23 Impacted cerumen, bilateral; L72.3 Sebaceous cyst; G89.4 Chronic pain syndrome; J45.909 Unspecified asthma, uncomplicated; M79.7 Fibromyalgia; Z91.013 Allergy to seafood; Z88.0 Allergy status to penicillin; Z88.1 Allergy status to other antibiotic agents; Z88.8 Allergy status to other drugs, medicaments and biological substances; Z79.899 Other long term (current) drug therapy

== ENCOUNTER 2019-10-18 11:11 | Emergency (ER) | payer OTHER ==
[~2019-10-18] VITALS: Ht 165.1 cm; Wt 64.4 kg
[~2019-10-18 11:11] MED LIST changes: +ACETAMINOPHEN PO; +NAPROXEN375 MG PO; +TYLENOL325 M1 PO
[2019-10-18 11:19] VITALS: BP 116/53
[2019-10-18 12:01] LABS: URINE BILIRUBIN NEGATIVE (Negative); URINE BLOOD NEGATIVE (Negative); URINE CLARITY CLEAR; URINE COLOR YELLOW; URINE GLUCOSE-RANDOM* NEGATIVE (Negative); URINE KETONES NEGATIVE (Negative); URINE LEUKOCYTES-REFLEX NEGATIVE (Negative); URINE NITRITE-REFLEX NEGATIVE (Negative); URINE PROTEIN (DIPSTICK) NEGATIVE (Negative); URINE SPECIFIC GRAVITY <= 1.005 (1.005-1.035); URINE UROBILINOGEN 0.2 E.U./dl (0.2-1.0)
== END 2019-10-18 12:40 | disposition home or self-care (01) ==
LOC: ER 11:11
PROVIDERS: Physician Assistant
DX: N80.9 Endometriosis, unspecified (principal); R53.83 Other fatigue; R06.02 Shortness of breath; J45.909 Unspecified asthma, uncomplicated; M79.7 Fibromyalgia; Z20.828 Contact with and (suspected) exposure to other viral communicable diseases; Z79.899 Other long term (current) drug therapy; Z91.013 Allergy to seafood; Z88.0 Allergy status to penicillin; Z88.1 Allergy status to other antibiotic agents; Z88.8 Allergy status to other drugs, medicaments and biological substances

== ENCOUNTER 2019-10-30 22:14 | Emergency (ER) | payer OTHER ==
[~2019-10-30] VITALS: Ht 165.1 cm; Wt 64.4 kg
[2019-10-30 23:55] LABS: URINE BILIRUBIN NEGATIVE (Negative); URINE BLOOD NEGATIVE (Negative); URINE CLARITY CLEAR; URINE COLOR YELLOW; URINE GLUCOSE-RANDOM* NEGATIVE (Negative); URINE KETONES NEGATIVE (Negative); URINE LEUKOCYTES-REFLEX NEGATIVE (Negative); URINE NITRITE-REFLEX NEGATIVE (Negative); URINE PROTEIN (DIPSTICK) NEGATIVE (Negative); URINE SPECIFIC GRAVITY >= 1.030 (1.005-1.035); URINE UROBILINOGEN 0.2 E.U./dl (0.2-1.0)
[2019-10-31] MEDS ORDERED: OFLOXACIN5 M1 RT. EAR (01:08)
[2019-10-31 01:11] VITALS: BP 116/62
--- NOTE | 2019-10-31 13:07 | EKG ---
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
== END 2019-10-31 01:40 | disposition home or self-care (01) ==
LOC: ER 22:14
PROVIDERS: Emergency Medicine
DX: H60.91 Unspecified otitis externa, right ear (principal); R06.02 Shortness of breath; R07.89 Other chest pain; R30.0 Dysuria; J45.909 Unspecified asthma, uncomplicated; Z79.899 Other long term (current) drug therapy; Z91.013 Allergy to seafood; Z88.0 Allergy status to penicillin; Z88.1 Allergy status to other antibiotic agents; Z88.8 Allergy status to other drugs, medicaments and biological substances

== ENCOUNTER 2019-12-03 15:25 | Emergency (ER) | payer OTHER ==
[~2019-12-03] VITALS: Ht 165.1 cm; Wt 64.4 kg
[~2019-12-03 15:25] MED LIST changes: +OFLOXACIN5 M1 RT. EAR
[2019-12-03 15:56] LABS: URINE BILIRUBIN NEGATIVE (Negative); URINE BLOOD NEGATIVE (Negative); URINE CLARITY CLEAR; URINE COLOR YELLOW; URINE GLUCOSE-RANDOM* NEGATIVE (Negative); URINE KETONES NEGATIVE (Negative); URINE LEUKOCYTES-REFLEX NEGATIVE (Negative); URINE NITRITE-REFLEX NEGATIVE (Negative); URINE PROTEIN (DIPSTICK) NEGATIVE (Negative); URINE SPECIFIC GRAVITY <= 1.005 (1.005-1.035); URINE UROBILINOGEN 0.2 E.U./dl (0.2-1.0)
[2019-12-03 16:40] LABS: ABSOLUTE NEUTROPHILS 4.6 thou/uL (1.4-8.2); BASOPHILS 0.6 % (0.0-2.0); EOSINOPHILS 3.4 % (0.0-3.0); HEMATOCRIT 37.4 % (37.0-47.0); HEMOGLOBIN 12.6 gm/dL (12.0-15.0); LYMPHOCYTES 13.5 % (24.0-44.0); MCH 31.1 pg (26.0-34.0); MCHC 33.7 g/dL (28.0-37.0); MCV 92.3 fL (80.0-100.0); MONOCYTES 6.5 % (1.0-8.0); PLATELET COUNT 273 thou/uL (150-400); RBC 4.05 mil/uL (4.20-5.00); RDW 13.5 % (10.5-14.5); WBC 6.1 thou/uL (4.0-11.0)
[2019-12-03 16:53] LABS: ANION GAP 7 mmol/L (7-16); BUN 24 mg/dL (7-18); CALCIUM 8.7 mg/dL (8.5-10.1); CHLORIDE 101 mmol/L (98-107); CO2 29 mmol/L (21-32); GLUCOSE 88 mg/dL (74-106); SODIUM 137 mmol/L (136-145)
[2019-12-03 16:59] LABS: ALBUMIN 3.5 g/dL (3.4-5.0); LIPASE 142 U/L (73-393); SGOT 19 U/L (15-37); SGPT 20 U/L (30-65); TOTAL BILIRUBIN 0.1 mg/dL (<0.1-1.0); TOTAL PROTEIN 7.9 g/dL (6.4-8.2)
[2019-12-03 17:01] LABS: DIRECT BILIRUBIN < 0.1 mg/dL (<0.1-0.2)
[2019-12-03] MEDS ORDERED: PROTONIX40 M4 PO (17:54)
[2019-12-03 18:07] VITALS: BP 111/68
== END 2019-12-03 18:08 | disposition home or self-care (01) ==
LOC: ER 15:25
PROVIDERS: Emergency Medicine
DX: R06.02 Shortness of breath (principal); R07.9 Chest pain, unspecified; R51 Headache; R11.0 Nausea; R35.0 Frequency of micturition; R10.2 Pelvic and perineal pain; R39.198 Other difficulties with micturition; J45.909 Unspecified asthma, uncomplicated; M79.7 Fibromyalgia; Z91.013 Allergy to seafood; Z88.0 Allergy status to penicillin; Z88.1 Allergy status to other antibiotic agents; Z88.8 Allergy status to other drugs, medicaments and biological substances; Z79.899 Other long term (current) drug therapy

== ENCOUNTER 2020-01-31 10:09 | Emergency (ER) | payer OTHER ==
[~2020-01-31] VITALS: Ht 165.1 cm; Wt 69.0 kg
[~2020-01-31 10:09] MED LIST changes: +PROTONIX40 M4 PO
[2020-01-31 11:24] LABS: URINE BILIRUBIN NEGATIVE (Negative); URINE BLOOD TRACE (Negative); URINE CLARITY CLEAR; URINE COLOR YELLOW; URINE GLUCOSE-RANDOM* NEGATIVE (Negative); URINE KETONES NEGATIVE (Negative); URINE LEUKOCYTES-REFLEX NEGATIVE (Negative); URINE NITRITE-REFLEX NEGATIVE (Negative); URINE PROTEIN (DIPSTICK) NEGATIVE (Negative); URINE SPECIFIC GRAVITY <= 1.005 (1.005-1.035); URINE UROBILINOGEN 0.2 E.U./dl (0.2-1.0)
[2020-01-31 11:52] LABS: ABSOLUTE NEUTROPHILS 3.9 thou/uL (1.4-8.2); BASOPHILS 0.3 % (0.0-2.0); EOSINOPHILS 2.7 % (0.0-3.0); HEMATOCRIT 39.7 % (37.0-47.0); HEMOGLOBIN 13.4 gm/dL (12.0-15.0); LYMPHOCYTES 13.4 % (24.0-44.0); MCH 31.3 pg (26.0-34.0); MCHC 33.8 g/dL (28.0-37.0); MCV 92.4 fL (80.0-100.0); PLATELET COUNT 238 thou/uL (150-400); POLYS 76.6 % (36.0-66.0); RBC 4.29 mil/uL (4.20-5.00); RDW 13.3 % (10.5-14.5); WBC 5.1 thou/uL (4.0-11.0)
[2020-01-31 12:02] LABS: CREATININE 0.8 mg/dL (0.6-1.0)
[2020-01-31 12:30] VITALS: BP 112/76
--- NOTE | 2020-01-31 13:25 | EKG ---
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
== END 2020-01-31 12:31 | disposition home or self-care (01) ==
LOC: ER 10:09
PROVIDERS: Emergency Medicine
DX: R51 Headache (principal); R42 Dizziness and giddiness; J45.909 Unspecified asthma, uncomplicated; Z79.899 Other long term (current) drug therapy; Z88.0 Allergy status to penicillin; Z91.013 Allergy to seafood; Z88.8 Allergy status to other drugs, medicaments and biological substances

== ENCOUNTER 2020-03-19 09:18 | Emergency (ER) | payer OTHER ==
[~2020-03-19] VITALS: Ht 165.1 cm; Wt 69.0 kg
[2020-03-19 10:00] LABS: URINE BILIRUBIN NEGATIVE (Negative); URINE BLOOD NEGATIVE (Negative); URINE CLARITY CLEAR; URINE COLOR YELLOW; URINE GLUCOSE-RANDOM* NEGATIVE (Negative); URINE KETONES NEGATIVE (Negative); URINE LEUKOCYTES-REFLEX NEGATIVE (Negative); URINE NITRITE-REFLEX NEGATIVE (Negative); URINE PROTEIN (DIPSTICK) NEGATIVE (Negative); URINE SPECIFIC GRAVITY <= 1.005 (1.005-1.035); URINE UROBILINOGEN 0.2 E.U./dl (0.2-1.0)
[2020-03-19 10:26] LABS: ABSOLUTE NEUTROPHILS 4.1 thou/uL (1.4-8.2); BASOPHILS 0.5 % (0.0-2.0); EOSINOPHILS 2.6 % (0.0-3.0); HEMOGLOBIN 13.2 gm/dL (12.0-15.0); LYMPHOCYTES 10.2 % (24.0-44.0); MCH 31.3 pg (26.0-34.0); MCHC 33.9 g/dL (28.0-37.0); MCV 92.3 fL (80.0-100.0); MONOCYTES 7.9 % (1.0-8.0); PLATELET COUNT 265 thou/uL (150-400); POLYS 78.8 % (36.0-66.0); RBC 4.22 mil/uL (4.20-5.00); RDW 13.7 % (10.5-14.5); WBC 5.2 thou/uL (4.0-11.0)
[2020-03-19 10:35] LABS: ANION GAP 9 mmol/L (7-16); BUN 18 mg/dL (7-18); CALCIUM 8.9 mg/dL (8.5-10.1); CHLORIDE 102 mmol/L (98-107); CO2 26 mmol/L (21-32); CREATININE 0.8 mg/dL (0.6-1.0); GLUCOSE 99 mg/dL (74-106); POTASSIUM 3.8 mmol/L (3.5-5.1); SODIUM 137 mmol/L (136-145)
[2020-03-19 10:45] LABS: ALBUMIN 3.7 g/dL (3.4-5.0); LIPASE 107 U/L (73-393); SGOT 22 U/L (15-37); SGPT 19 U/L (30-65); TOTAL BILIRUBIN 0.2 mg/dL (0.2-1.0); TOTAL PROTEIN 7.8 g/dL (6.4-8.2); TROPONIN-I <0.06 ng/mL (<0.06)
[2020-03-19] MEDS ORDERED: NAPROXEN375 MG PO (11:22)
[2020-03-19 11:40] VITALS: BP 115/71
--- NOTE | 2020-03-20 08:22 | EKG ---
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1975 Requested By: Raulito Del Angel Order Number: [id number] MD: Luis Jacobs Measurements Intervals [place] Rate: 71 P: 56 [place]: 162 QRS: 63 QRSD: 83 T: 26 QT: 352 QTc: 383 Interpretive Statements Sinus rhythm RSR' in V1 or V2, probably normal variant Compared to ECG 01/31/2020 11:34:19 No significant changes Electronically Signed On 03-20-2020 8:22:08 CDT by Luis Jacobs [email or web address] <ELECTRONICALLY SIGNED> By: Luis Jacobs MD, [facility] 03/20/20 0822 1030 1030 Luis Jacobs MD, [facility] /EPI
== END 2020-03-19 11:43 | disposition home or self-care (01) ==
LOC: ER 09:18
PROVIDERS: Emergency Medicine
DX: B34.9 Viral infection, unspecified (principal); M79.10 Myalgia, unspecified site; J02.9 Acute pharyngitis, unspecified; F41.9 Anxiety disorder, unspecified; J45.909 Unspecified asthma, uncomplicated; Z79.899 Other long term (current) drug therapy; Z88.0 Allergy status to penicillin; Z88.8 Allergy status to other drugs, medicaments and biological substances; Z91.013 Allergy to seafood; Z20.828 Contact with and (suspected) exposure to other viral communicable diseases

== ENCOUNTER 2020-04-20 11:11 | Emergency (ER) | payer OTHER ==
[~2020-04-20] VITALS: Ht 165.1 cm; Wt 69.0 kg
[2020-04-20 11:12] VITALS: BP 107/51
[2020-04-20 11:33] LABS: URINE BILIRUBIN NEGATIVE (Negative); URINE BLOOD NEGATIVE (Negative); URINE CLARITY CLEAR; URINE COLOR YELLOW; URINE GLUCOSE-RANDOM* NEGATIVE (Negative); URINE KETONES NEGATIVE (Negative); URINE LEUKOCYTES-REFLEX NEGATIVE (Negative); URINE NITRITE-REFLEX NEGATIVE (Negative); URINE PROTEIN (DIPSTICK) NEGATIVE (Negative); URINE SPECIFIC GRAVITY <= 1.005 (1.005-1.035); URINE UROBILINOGEN 0.2 E.U./dl (0.2-1.0)
[2020-04-20] MEDS ORDERED: CIPRODEX OTIC7.5 ML OTIC (11:50)
[2020-04-21] MEDS ORDERED: CIPRO500 M1 PO ×2 (17:44→17:52)
== END 2020-04-20 12:00 | disposition home or self-care (01) ==
LOC: ER 11:11
PROVIDERS: Emergency Medicine
DX: H66.93 Otitis media, unspecified, bilateral (principal); J45.909 Unspecified asthma, uncomplicated; Z79.899 Other long term (current) drug therapy; Z88.0 Allergy status to penicillin; Z88.8 Allergy status to other drugs, medicaments and biological substances; Z91.013 Allergy to seafood

== ENCOUNTER 2020-04-21 16:33 | Emergency (ER) | payer OTHER ==
[~2020-04-21] VITALS: Ht 165.1 cm; Wt 69.0 kg
[~2020-04-21 16:33] MED LIST changes: +CIPRODEX OTIC7.5 ML OTIC
[2020-04-21 17:20] LABS: ABSOLUTE NEUTROPHILS 5.3 thou/uL (1.4-8.2); BASOPHILS 0.4 % (0.0-2.0); EOSINOPHILS 2.6 % (0.0-3.0); HEMATOCRIT 37.6 % (37.0-47.0); HEMOGLOBIN 12.5 gm/dL (12.0-15.0); LYMPHOCYTES 13.6 % (24.0-44.0); MCH 30.8 pg (26.0-34.0); MCHC 33.2 g/dL (28.0-37.0); MCV 92.6 fL (80.0-100.0); MONOCYTES 6.7 % (1.0-8.0); PLATELET COUNT 295 thou/uL (150-400); POLYS 76.7 % (36.0-66.0); RBC 4.05 mil/uL (4.20-5.00); RDW 13.4 % (10.5-14.5); WBC 6.9 thou/uL (4.0-11.0)
[2020-04-21 17:33] LABS: CALCIUM 8.7 mg/dL (8.5-10.1); CREATININE 0.9 mg/dL (0.6-1.0)
[2020-04-21 17:33] LABS: URINE BILIRUBIN NEGATIVE (Negative); URINE BLOOD TRACE (Negative); URINE CLARITY CLEAR; URINE COLOR YELLOW; URINE GLUCOSE-RANDOM* NEGATIVE (Negative); URINE KETONES NEGATIVE (Negative); URINE LEUKOCYTES-REFLEX NEGATIVE (Negative); URINE NITRITE-REFLEX NEGATIVE (Negative); URINE PROTEIN (DIPSTICK) NEGATIVE (Negative); URINE SPECIFIC GRAVITY >= 1.030 (1.005-1.035); URINE UROBILINOGEN 0.2 E.U./dl (0.2-1.0)
[2020-04-21 17:36] LABS: ALBUMIN 3.7 g/dL (3.4-5.0); TOTAL BILIRUBIN 0.2 mg/dL (0.2-1.0)
[2020-04-21] MEDS ORDERED: CIPRO500 M1 PO ×2 (17:44→17:52)
[2020-04-21 18:07] VITALS: BP 125/59
== END 2020-04-21 18:07 | disposition home or self-care (01) ==
LOC: ER 16:33
PROVIDERS: Nurse Practitioner Family
DX: H60.91 Unspecified otitis externa, right ear (principal); N39.0 Urinary tract infection, site not specified; M79.18 Myalgia, other site; J45.909 Unspecified asthma, uncomplicated; F41.9 Anxiety disorder, unspecified; Z79.899 Other long term (current) drug therapy; Z79.2 Long term (current) use of antibiotics; Z91.013 Allergy to seafood; Z88.8 Allergy status to other drugs, medicaments and biological substances; Z88.0 Allergy status to penicillin; Z88.1 Allergy status to other antibiotic agents